=== PATIENT | female | born 1995 | race Two or more races ===

== ENCOUNTER 2022-10-18 10:20 | Emergency (ER) | payer BC ==
[2022-10-18 10:38] VITALS: BP 134/62; PULSE 67; RESP 18; TEMP 98; BMI 20.5
[2022-10-18] MEDS ORDERED: ACETAMINOPHEN 1000 MG/100 ML BAG IVPB ONE (13:08)
[2022-10-18] MEDS ORDERED: ACETAMINOPHEN INJECTION 100 ML IVPB ONE (13:12)
== END 2022-10-18 16:09 | disposition home or self-care (01) ==
LOC: JERFT 10:20 → JER 10:20 → JERFT 16:09
PROC: 0H99XZZ Drainage of Perineum Skin, External Approach (ICD-10-PCS; principal; 2022-10-18)
PROC: 3E0333Z Introduction of Anti-inflammatory into Peripheral Vein, Percutaneous Approach (ICD-10-PCS; 2022-10-18)
DX: K61.0 Anal abscess (principal)
CPT/HCPCS: 36415; 72193-TC; 84703; 99285-25; Q9967